=== PATIENT | female | born 1985 | race Two or more races ===

== ENCOUNTER 2016-12-15 05:46 | Inpatient (IN) | payer BC, SELFPAY ==
[~2016-12-15] VITALS: Ht 154.9 cm
--- NOTE | ~2016-12-15 | OR ---
PATIENT'S NAME: OFELIA SOMERS [facility] AGE: 31 [address] ROOM: [address] [address] LOCATION: [facility] ADMIT DATE: 12/15/2016 OR/Procedure Report DISCHARGE DATE: FAMILY PHYSICIAN: Liana Armenta MD ATTENDING PHYSICIAN: Neyda Stafford SURGEON: Neyda Stafford MD HIDE SELECTOR: Dr. Fidel Cortes. Dr. Cortes's assistance was required due to the complexity of the case as well as in compliance with [facility] guidelines. 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 PROCEDURE: Repeat low transverse section. ANESTHESIA: Spinal. ESTIMATED BLOOD LOSS: 500 mL. CLINICAL INDICATION: Alonso Somers is a 31-year-old, female, 4, para 2, at 37 weeks' gestational age. She has had two prior sections, necessitating a repeat section. 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 Antibodies arising, we have been following her twice weekly with surveillance. We recommended she deliver early due to the antibiotics. FINDINGS: Delivery of viable 6 pounds 1 ounce female infant, score 8 at 1 minute, 8 at 5 minutes. umbilical arterial cord blood gas is pending at time of dictation. TECHNIQUE OF PROCEDURE: The patient was taken to the operating room, given spinal anesthesia with good results, placed in a supine position with a right hip roll, prepped and draped in the usual fashion. Pfannenstiel skin incision was made about a prior Pfannenstiel scar. Old scar excised sharply. Subcutaneous tissue dissected sharply. The skin was incised sharply. Old scar excised sharply. Subcutaneous tissue dissected sharply. Fascial incision performed sharply. Linea alba dissected free of rectus muscles using a combination of sharp and blunt dissection. Rectus muscles split sharply in the midline. Peritoneum incised sharply in the midline. Bladder flap [facility]GE: 31 Y [address] ROOM: [address] [address] LOCATION: [facility] ADMIT DATE: 12/15/2016 OR/Procedure Report DISCHARGE DATE: FAMILY PHYSICIAN: Liana Armenta MD ATTENDING PHYSICIAN: Neyda Stafford. Myometrium incised with a scalpel. Endometrial cavity was entered bluntly. Uterine incision was performed bluntly. At this point time, there is a rapid and easy delivery of a viable 6 pounds 1 ounce female , score 8 at 1 minute, 8 at 5 minutes. The umbilical cord was doubly clamped, the intervening segment cut. Infant handed off to the awaiting nursing services. umbilical arterial cord blood and venous cord blood were obtained for blood gas analysis and routine studies respectively. Placenta delivered spontaneously intact with 3 vessels. Exploration of the uterine cavity noted no residual placental or amniotic membranes. Uterine incision was closed in a running continually locking stitch of 0 chromic suture, followed by a second imbricating layer consisting of running continuous stitch of 0 chromic suture. Good hemostasis was obtained. Bladder flap was closed with a running continuous stitch of 2-0 Vicryl suture. Abdomen was inspected. Any blood or blood clots retrieved. Tubes and ovaries were normal bilaterally. Abdominal peritoneum was closed with running continuous stitch of 2-0 Vicryl suture. The fascial incision was closed with 2 running continuous stitches of 0 Vicryl suture tied in the midline. Subcutaneous tissue was reapproximated using running continuous stitch of 2-0 Vicryl suture. The skin was closed with a running continuous subcuticular stitch of 4-0 Vicryl suture. Sponge, needle, and instrument counts were correct. The patient tolerated procedure well, was taken to the recovery room in good condition. NEYDA STAFFORD MD W/modl /[id number] d: 12/15/16 1644 t: 12/19/16 0742, OPERATIVE SUMMARY
[~2016-12-15 05:46] MED LIST: PRENATAL 1+1)(P1 TAB PO
[2016-12-15 06:54] LABS: BASOPHIL % 0.1 %; EOSINOPHIL % 0.5 %; HEMATOCRIT 36.3 % (33.0-46.0); HEMOGLOBIN 11.7 g/dL (11.0-15.0); IMMATURE GRANULOCYTE # 0.1 K/uL (0.0-0.3); IMMATURE GRANULOCYTE % 0.6 %; LYMPHOCYTE # 2.9 K/uL (0.8-4.0); LYMPHOCYTE % 36.4 %; MCH 25.5 pg (27.0-34.0); MCHC 32.2 gm/dL (32.0-36.5); MCV 79.3 fl (83.0-98.0); MONOCYTE # 0.4 K/uL (0.0-1.0); MONOCYTE % 4.6 %; MPV 11.5 fl (9.4-12.4); NEUTROPHIL # (ANC) 4.6 K/uL (1.8-7.8); NEUTROPHIL % 57.8 %; NRBC % 0 /100WBC (0-0.00); RBC 4.58 M/uL (3.50-5.50); RDW-CV 14.1 % (11.9-14.6)
[2016-12-15 06:59] LABS: PLATELET COUNT 182 K/uL (150-450)
[2016-12-15 08:59] LABS: PCO2 57 mmHg (35-45)
[2016-12-15 09:00] LABS: BICARBONATE 25.3 mmol/L (18.0-23.0); PO2 13 mmHg (80-90)
[2016-12-16 04:38] LABS: BASOPHIL % 0.2 %; EOSINOPHIL % 0.3 %; HEMOGLOBIN 10.9 g/dL (11.0-15.0); IMMATURE GRANULOCYTE # 0.1 K/uL (0.0-0.3); IMMATURE GRANULOCYTE % 0.4 %; LYMPHOCYTE # 2.5 K/uL (0.8-4.0); LYMPHOCYTE % 20.7 %; MCH 25.5 pg (27.0-34.0); MCHC 32.1 gm/dL (32.0-36.5); MCV 79.6 fl (83.0-98.0); MONOCYTE # 0.5 K/uL (0.0-1.0); MONOCYTE % 4.3 %; MPV 11.4 fl (9.4-12.4); NEUTROPHIL # (ANC) 9.1 K/uL (1.8-7.8); NEUTROPHIL % 74.1 %; NRBC % 0 /100WBC (0-0.00); PLATELET COUNT 160 K/uL (150-450); RBC 4.27 M/uL (3.50-5.50); RDW-CV 14.2 % (11.9-14.6); WBC 12.3 K/uL (4.0-11.0)
--- NOTE | 2016-12-16 05:22 | NUR ---
Significant Event: Patient doing well, Percocet and toradol last given at 0300 with relief. need encourgement to ambulate Follow up:
--- NOTE | 2016-12-17 05:17 | NUR ---
VSS, walks to NICU frequently, last had Percocet at 0315 and Motrin last at 2100
[2016-12-17] MEDS ORDERED: PERCOCET 5-3251 EACH PO (12:02)
[2016-12-17] MEDS ORDERED: MOTRIN800 MG PO (12:02)
--- NOTE | 2016-12-17 16:40 | NUR ---
Last VS: T:98.4 P:87 R: 16 BP: 129/69 Pain ratin. Last pain med: Percocet (2 TABS) Medicated at: 1215 Effective: Yes R Lung sounds: CLEAR, L Lung sounds: CLEAR Fundus: FIRM, MIDLINE Lochia: SCANT, RUBRA Breasts: PUMPING, Nipples: INTACT Incision: APPROXIMATED Incision closure: SUTURE, STERI-STRIPS Bowel sounds: ACTIVE Passing flatus: YES Voiding well: YES Significant event: AMBULATES TO NICU FREQUENTLY. PUMPING INDEPENDANTLY EVERY 4 HOURS. MOTRIN GIVEN FOR A HEADACHE THIS MORNING AT 0810 WITH RELIEF. PLANS FOR DISMISSAL TOMORROW TO HOME. *.
--- NOTE | 2016-12-17 17:02 | NUR ---
Phone call from Lucie Gurrola, bit tapper stating patient has questions regarding Medicaid for baby Katerin. Using Lucie to communicate to mom I informed mom that she needs to notify Medicaid of Katerin's . I informed her that Medicaid will likely tell her they need a certificate and SS# before she can add baby and that once she gets that information she will need to forward that to Medicaid as soon as possible. I did let mom know that we will notify Medicaid of Katerin's but mom needs to contact them also. Per Lucie mom voiced her understanding. Mom is not going to discharge today, but will discharge tomorrow. She denies needing a room at the [facility] and I notified staff that she does not qualify for a room since she lives here in [place]. Staff and mom understand. Will continue to follow baby Katerin and offer supports to mom.
--- NOTE | 2016-12-18 04:10 | NUR ---
VSS, ambulates to NICU, pumping, Last had 1 Percocet and Motrin at 1718, Steri strips dry and intact, Fundus firm, midline, scant flow
== END 2016-12-18 17:15 | disposition disaster alternative care site (69) | DRG 766 ==
LOC: GOBS 05:46
PROVIDERS: ADMIT Obstetrics & Gynecology
PROC: 10D00Z1 Extraction of Products of Conception, Low, Open Approach (ICD-10-PCS; principal; 2016-12-15)
DX: O36.0930 Maternal care for other rhesus isoimmunization, third trimester, not applicable or unspecified (principal); O36.1930 Maternal care for other isoimmunization, third trimester, not applicable or unspecified; O34.211 Maternal care for low transverse scar from previous cesarean delivery; Z3A.37 37 weeks gestation of pregnancy; Z37.0 Single live birth
CPT/HCPCS: J0295; J1885; J2590; J7120